=== PATIENT | female | born 1930 | race Caucasian/White ===

== ENCOUNTER → 2017-02-12 | Outpatient (CLI) | payer MEDICARE, BC ==
[~2017-02-12] MED LIST: AMLO5TAB2 PO; CHLO25TA PO; LIOT5TAB3 PO; LOSA100T6 PO; METO-93 PO; [UNRECOGNIZED DRUG - CODE] PO
== END | disposition home or self-care (01) ==
LOC: STAR 14:30
PROVIDERS: ATTEND Orthopaedic Surgery
DX: Z01.818 Encounter for other preprocedural examination (principal); M17.0 Bilateral primary osteoarthritis of knee; R94.31 Abnormal electrocardiogram [ECG] [EKG]
CPT/HCPCS: 93005

== ENCOUNTER 2017-02-18 05:33 | Inpatient (IN) | payer MEDICARE, BC ==
[~2017-02-18] VITALS: Ht 157.5 cm; Wt 79.9 kg
[2017-02-18] MEDS ORDERED: VANCOMYCIN PER PHARMACY MC PRN (06:00)
[2017-02-18] MEDS ORDERED: LACTATED RINGERS 1,000 ML IV SCH (06:05)
[2017-02-18] MEDS ORDERED: VANCOMYCIN 1,400 MG in SODIUM CHLORIDE 0.9% 250 ML IV ONE (06:30)
[2017-02-18] MEDS ORDERED: ROPIvacaine/PF 0.2%, 20 ML ONE (06:34)
[2017-02-18] MEDS ORDERED: NEOSPORIN OINT, 15GM ONE (06:34)
[2017-02-18] MEDS ORDERED: KETOROLAC 60 MG/2 ML ONE (06:34)
[2017-02-18] MEDS ORDERED: TRANEXAMIC ACID 100 MG/ML, 10ML ONE (06:34)
[2017-02-18] MEDS ORDERED: EPINEPHRINE 1 MG/ML, 1ML ONE (06:35)
[2017-02-18] MEDS ORDERED: morphine SULFATE/PF 1 MG/ML, 10ML ONE (06:35)
[2017-02-18] MEDS ORDERED: SODIUM CHLORIDE 0.9% 100 ML ONE (06:35)
[2017-02-18] MEDS ORDERED: PROPOFOL 10 MG/ML, 20ML ONE (06:42)
[2017-02-18] MEDS ORDERED: FENTANYL PF 250 MCG/5ML ONE (06:42)
[2017-02-18] MEDS ORDERED: ROCURONIUM 10 MG/ML,10ML ONE (06:43)
[2017-02-18] MEDS ORDERED: SODIUM CHLORIDE 0.9% PF 10ML ONE (06:43)
[2017-02-18] MEDS ORDERED: CEFAZOLIN 1,000 MG ONE ×2 (06:43)
[2017-02-18] MEDS ORDERED: NEOSTIGMINE 1 MG/ML, 10ML ONE (06:45)
[2017-02-18] MEDS ORDERED: GLYCOPYRROLATE 0.4 MG/2 ML, 2ML ONE ×2 (06:45→09:10)
[2017-02-18] MEDS ORDERED: DEXAMETHASONE 4 MG/ML, 1ML ONE ×2 (06:46)
[2017-02-18] MEDS ORDERED: ONDANSETRON 2MG/ML, 2ML ONE (06:46)
[2017-02-18] MEDS ORDERED: MEPERIDINE/PF 25MG/0.5ML IVPush PRN (07:30)
[2017-02-18] MEDS ORDERED: OXYcodone 5 MG/5 ML ORAL.SOL UDC PO PRN (07:30)
[2017-02-18] MEDS ORDERED: LABETALOL 5MG/ML, 20ML IV PRN (07:30)
[2017-02-18] MEDS ORDERED: hydrALAzine 20 MG/ML, 1ML IV PRN (07:30)
[2017-02-18] MEDS ORDERED: FENTANYL PF 100 MCG/2ML IV PRN (07:30)
[2017-02-18] MEDS ORDERED: PROMETHAZINE 25 MG/ML, 1ML IV PRN (07:30)
[2017-02-18] MEDS ORDERED: ONDANSETRON 2MG/ML, 2ML IVPush PRN ×2 (07:30→12:30)
[2017-02-18] MEDS ORDERED: HYDROmorphone 2 MG/ML, 1ML ONE ×2 (08:15→09:56)
[2017-02-18] MEDS ORDERED: OXYcodone 5 MG/5 ML ORAL.SOL UDC ONE (09:56)
[2017-02-18] MEDS: HYDROmorphone 1 MG/ML, 1ML IV PRN ×2 (10:03→10:22)
[2017-02-18] MEDS ORDERED: hydrALAzine 20 MG/ML, 1ML ONE (10:24)
[2017-02-18] MEDS ORDERED: MAGNESIUM HYDROXIDE 8%, 30ML UDC PO PRN (12:30)
[2017-02-18] MEDS ORDERED: HYDROcodone/APAP 10/325 MG TABLET PO PRN (12:30)
[2017-02-18] MEDS ORDERED: ACETAMINOPHEN 325 MG TABLET PO PRN (12:30)
[2017-02-18] MEDS ORDERED: DIPHENHYDRAMINE 25 MG CAPSULE PO PRN (12:30)
[2017-02-18] MEDS ORDERED: SENNA/DOCUSATE TABLET PO PRN (12:30)
[2017-02-18] MEDS ORDERED: BISACODYL 10 MG SUPP PR PRN (12:30)
[2017-02-18] MEDS: POTASSIUM CHLORIDE 10 MEQ in D5%-0.45% NACL 1,000 ML IV SCH (12:55)
[2017-02-18] MEDS ORDERED: OXYcodone IR 5MG TABLET PO PRN (13:00)
[2017-02-18] MEDS ORDERED: HYDROcodone/APAP 7.5-325MG/15ML UDC PO PRN (13:00)
[2017-02-18 13:37] VITALS: BP 123/75
[2017-02-18] MEDS: CEFAZOLIN PMX 1GM/50ML 50 ML IVPB SCH (15:32)
[2017-02-18] MEDS ORDERED: VANCOMYCIN PMX 1GM/200ML 200 ML IVPB ONE (19:00)
[2017-02-18 20:16] VITALS: BP 118/69
[2017-02-18] MEDS: DOCUSATE 100 MG CAPSULE PO SCH (22:23)
[2017-02-19] MEDS: CEFAZOLIN PMX 1GM/50ML 50 ML IVPB SCH (00:15)
[2017-02-19 00:22] VITALS: BP 138/71
[2017-02-19 03:10] VITALS: BP 139/70
[2017-02-19] MEDS: ENOXAPARIN 30 MG/0.3 ML SQ SCH ×2 (06:35→18:42)
[2017-02-19] MEDS: METOPROLOL SUCCINATE 50 MG TAB.ER.24H PO SCH (06:37)
[2017-02-19 08:30] VITALS: BP 111/69
[2017-02-19] MEDS: POTASSIUM CHLORIDE 10 MEQ in D5%-0.45% NACL 1,000 ML IV SCH (08:36)
[2017-02-19] MEDS: MULTIVITAMINS/MINERALS TABLET PO SCH ×2 (09:00→09:20)
[2017-02-19] MEDS: AMLODIPINE 5 MG TABLET PO SCH (09:00)
[2017-02-19] MEDS: DARIFENACIN 7.5 MG HOMEMEDPO SCH (09:00)
[2017-02-19] MEDS: LOSARTAN 50MG TABLET PO SCH (09:00)
[2017-02-19] MEDS: LIOTHYRONINE 5 MCG TABLET PO SCH (09:20)
[2017-02-19] MEDS: DOCUSATE 100 MG CAPSULE PO SCH ×2 (09:20→19:40)
[2017-02-19] MEDS: CHLORTHALIDONE 25 MG TABLET PO SCH (09:20)
[2017-02-19] MEDS: OXYcodone/APAP 5/325MG TABLET PO PRN ×2 (10:19→16:27)
[2017-02-19 12:40] VITALS: BP 103/67
[2017-02-19 19:29] VITALS: BP 109/63
[2017-02-20 00:54] VITALS: BP 131/71
[2017-02-20] MEDS ORDERED: OXYC-307 PO (04:11)
[2017-02-20] MEDS ORDERED: ASPI-496 PO (04:13)
[2017-02-20] MEDS: POTASSIUM CHLORIDE 10 MEQ in D5%-0.45% NACL 1,000 ML IV SCH (04:42)
[2017-02-20 05:53] VITALS: BP 115/67
[2017-02-20] MEDS: OXYcodone/APAP 5/325MG TABLET PO PRN (06:21)
[2017-02-20] MEDS: METOPROLOL SUCCINATE 50 MG TAB.ER.24H PO SCH (06:29)
[2017-02-20] MEDS: ENOXAPARIN 30 MG/0.3 ML SQ SCH ×2 (06:29→21:04)
[2017-02-20 07:31] VITALS: BP 109/66
[2017-02-20] MEDS: CHLORTHALIDONE 25 MG TABLET PO SCH (08:20)
[2017-02-20] MEDS: MULTIVITAMINS/MINERALS TABLET PO SCH (08:21)
[2017-02-20] MEDS: DOCUSATE 100 MG CAPSULE PO SCH ×2 (08:21→21:04)
[2017-02-20] MEDS: LIOTHYRONINE 5 MCG TABLET PO SCH (08:21)
[2017-02-20] MEDS: AMLODIPINE 5 MG TABLET PO SCH (08:21)
[2017-02-20] MEDS: DARIFENACIN 7.5 MG HOMEMEDPO SCH (08:21)
[2017-02-20] MEDS: LOSARTAN 50MG TABLET PO SCH (08:21)
[2017-02-20 13:00] VITALS: BP 111/59
[2017-02-20 19:30] VITALS: BP 115/63
[2017-02-21] MEDS: POTASSIUM CHLORIDE 10 MEQ in D5%-0.45% NACL 1,000 ML IV SCH (00:50)
[2017-02-21 01:21] VITALS: BP 121/65
[2017-02-21] MEDS: METOPROLOL SUCCINATE 50 MG TAB.ER.24H PO SCH (06:30)
[2017-02-21 07:31] VITALS: BP 116/70
[2017-02-21] MEDS: MULTIVITAMINS/MINERALS TABLET PO SCH (08:26)
[2017-02-21] MEDS: DARIFENACIN 7.5 MG HOMEMEDPO SCH (08:26)
[2017-02-21] MEDS: AMLODIPINE 5 MG TABLET PO SCH (08:26)
[2017-02-21] MEDS: DOCUSATE 100 MG CAPSULE PO SCH (08:26)
[2017-02-21] MEDS: ENOXAPARIN 30 MG/0.3 ML SQ SCH (08:27)
[2017-02-21] MEDS: LOSARTAN 50MG TABLET PO SCH (08:27)
[2017-02-21] MEDS: LIOTHYRONINE 5 MCG TABLET PO SCH (08:27)
[2017-02-21] MEDS: CHLORTHALIDONE 25 MG TABLET PO SCH (08:27)
[2017-02-21 09:44] VITALS: BP 126/76
== END 2017-02-21 12:53 | disposition home or self-care (01) | DRG 470 ==
LOC: ORIP 05:33 → UNDODISIN 09:47 → 4NOR 11:55 → DCLOUNGE 02-21 11:56
PROVIDERS: ADMIT Orthopaedic Surgery; ATTEND Orthopaedic Surgery
PROC: 0SRC0J9 Replacement of Right Knee Joint with Synthetic Substitute, Cemented, Open Approach (ICD-10-PCS; principal; 2017-02-18 07:30)
DX: M17.11 Unilateral primary osteoarthritis, right knee (principal)
CPT/HCPCS: 36415; 82565; C1713; J0171; J0690; J1100; J1170; J1650; J1885; J2274; J2405; J2704; J2710; J2795; J3010; J3370; J3480; C1776; J0360; J7050; J7120